=== PATIENT | male | born 1955 | race African-American/Black ===

== ENCOUNTER 2020-11-01 11:38 | Emergency (ER) | payer OTHER ==
[~2020-11-01] VITALS: Ht 170.2 cm; Wt 78.6 kg
[2020-11-01 13:10] VITALS: BP 187/91
[2020-11-01] MEDS ORDERED: methylPREDNISolone SOD SUCC PF 125 MG/2 ML VIAL. IM ONE (15:00)
[2020-11-01] MEDS ORDERED: KETOROLAC 60 MG/2 ML VIAL. IM ONE (15:00)
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
[2020-11-01] MEDS ORDERED: NAPR-682 PO (15:34)
[2020-11-01] MEDS ORDERED: PRED20TA PO (15:34)
== END 2020-11-01 16:10 | disposition home or self-care (01) ==
LOC: ER 11:38
DX: M54.41 Lumbago with sciatica, right side (principal); M54.42 Lumbago with sciatica, left side; I10 Essential (primary) hypertension; Z90.89 Acquired absence of other organs; Z98.890 Other specified postprocedural states
CPT/HCPCS: 72100; 96372; 99284; J1885; J2930